=== PATIENT | male | born 1965 | race Two or more races ===

== ENCOUNTER 2023-11-24 07:28 | Outpatient (CLI) | payer OTHER | END 2023-11-24 07:29 | disposition home or self-care (01) | LOC: NUCLEAR 07:28 | PROVIDERS: ATTEND Internal Medicine Cardiovascular Disease | DX: I20.9 Angina pectoris, unspecified (principal) ==

== ENCOUNTER 2024-03-06 10:01 | Outpatient (CLI) | payer OTHER | END 2024-03-06 10:15 | disposition home or self-care (01) | LOC: TOM 10:01 | PROVIDERS: ATTEND Internal Medicine | DX: Z12.2 Encounter for screening for malignant neoplasm of respiratory organs (principal) ==